=== PATIENT | male | born 1955 | race Caucasian/White ===

== ENCOUNTER 2018-01-18 16:51 | Inpatient (IN) | payer MEDICARE, MEDICAID ==
[2018-01-18 17:19] LABS: #Basophils 0.1 thou/uL (0.0-0.2); #Eosinphils 0.2 thou/uL (0.0-0.7); #Lymphocytes 2.2 thou/uL (1.20-3.40); #Monocytes 0.7 thou/uL (0.11-0.59); #Neutrophils 5.1 thou/uL (1.40-6.50); %Basophils 0.9 % (0.0-1.0); %Eosinophils 1.9 % (0.0-10.0); %Monocytes 8.8 % (0.0-10.0); %Neutrophils 61.4 % (42.0-75.0); Hemoglobin 17.8 g/dL (14.0-18.0); Mean Corpuscular HGB CONC 33.4 g/dL (32.0-36.0); Mean Corpuscular Hemoglobin 33.5 pg (27.0-31.0); Mean Platelet Volume 8.2 fL (7.4-10.4); Platelet Count 158 thou/uL (130-400); RBC Distribution Width 11.5 % (11.5-14.5); Red Blood Cell (RBC) Count 5.32 mill/uL (4.70-6.10); White Blood Cell (WBC) Count 8.2 thou/uL (4.8-10.8)
--- NOTE | 2018-01-18 17:32 | RAD ---
UPRIGHT PORTABLE CHEST ONE VIEW: 01/18/18 HISTORY: 62-year-old male with history of chest pain. COMPARISON: 11/08/09. FINDINGS: Mild increased linear interstitial markings in the bases. No confluent pneumonia, overt edema, or ple ural effusion. No cardiomegaly. IMPRESSION: Mild stable chronic changes. No acute intrathoracic disease. POS: [facility]
[2018-01-18] MEDS ORDERED: Nitroglycerin 0.4 MG TAB (25 Tab Bottle) ONE (17:52)
[2018-01-18] MEDS ORDERED: Ondansetron PF 4 MG/2 ML Vial ONE (17:52)
[2018-01-18 17:55] LABS: CKMB 8.6 ng/mL (0-6.6); Troponin I 0.643 ng/mL (< 0.028)
[2018-01-18] MEDS ORDERED: Enoxaparin Sodium 80 MG/0.8 ML SYRINGE ONE (18:06)
[2018-01-18] MEDS ORDERED: Enoxaparin Sodium 100 MG/ML SYRINGE ONE (18:07)
[2018-01-18 18:22] LABS: PTT 32.3 SEC (22.9-36.1); Prothrombin Time 12.7 SEC (12.0-14.7)
[2018-01-18 18:24] LABS: ALT (SGPT) 19 U/L (8-55); AST (SGOT) 34 U/L (5-34); Albumin 4.5 g/dL (3.5-5.0); Alkaline Phosphatase 85 U/L (40-150); Anion Gap 14 mmol/L (10-20); BUN (Urea Nitrogen) 9 mg/dL (8.4-25.7); Bilirubin, Total 0.6 mg/dL (0.2-1.2); CK (CPK) 164 U/L (30-200); Calc. Creatinine Clearance 0 mL/min (70-130); Calcium 9.5 mg/dL (7.8-10.44); Carbon Dioxide 29 mmol/L (22-29); Chloride 100 mmol/L (98-107); Estimated GFR-MDRD Greater than 90; Globulin 3.8 g/dL (2.4-3.5); Glucose 104 mg/dL (70-105); Lipase 53 U/L (8-78); Potassium 3.9 mmol/L (3.5-5.1); Protein, Total 8.3 g/dL (6.0-8.3); Sodium 139 mmol/L (136-145)
[2018-01-18] MEDS ORDERED: Acetaminophen 325 MG TAB PO PRN ×2 (19:12→22:02)
[2018-01-18] MEDS ORDERED: Sodium Chloride 0.9% 1,000 ML IV SCH (19:12)
[2018-01-18] MEDS ORDERED: HYDROcodone/Acetaminophen 5/325 mg Tablet PO PRN ×2 (19:12)
[2018-01-18] MEDS ORDERED: Ondansetron ODT 4 MG TAB SL PRN (19:12)
[2018-01-18] MEDS ORDERED: Ondansetron PF 4 MG/2 ML Vial IVP PRN ×3 (19:12→22:02)
[2018-01-18 19:27] VITALS: BMI 28.2
[2018-01-18 21:29] LABS: Troponin I 0.609 ng/mL (< 0.028)
[2018-01-18] MEDS ORDERED: Nitroglycerin 2% Ointment 1 INCH/1 GM Packet TOP SCH (22:00)
[2018-01-18] MEDS ORDERED: Calcium Carbonate 500 MG ChewTAB PO PRN (22:02)
[2018-01-18] MEDS ORDERED: hydrALAZINE 20 MG/ML VIAL SLOW IVP PRN (22:02)
[2018-01-18] MEDS ORDERED: cloNIDine 0.1 MG TAB PO PRN (22:02)
[2018-01-18] MEDS ORDERED: Benzonatate 100 MG CAP PO PRN (22:02)
[2018-01-18] MEDS ORDERED: Nitroglycerin 0.4 MG TAB (25 Tab Bottle) SL PRN (22:02)
[2018-01-18] MEDS ORDERED: Diabetic Tussin 200 MG/10 ML UDCUP PO PRN (22:02)
[2018-01-18] MEDS ORDERED: Senokot S 8.6-50 MG TAB PO PRN ×2 (22:02)
[2018-01-18] MEDS ORDERED: Bisacodyl 5 MG TAB PO PRN (22:02)
[2018-01-18 23:47] LABS: Troponin I 2.103 ng/mL (< 0.028)
[2018-01-19 00:52] LABS: Hemoglobin 15.9 g/dL (14.0-18.0); Platelet Count 158 thou/uL (130-400)
[2018-01-19 01:26] LABS: Anion Gap 11 mmol/L (10-20); BUN (Urea Nitrogen) 11 mg/dL (8.4-25.7); Calc. Creatinine Clearance 123 mL/min (70-130); Calcium 9.4 mg/dL (7.8-10.44); Carbon Dioxide 28 mmol/L (22-29); Cardiac Risk 4.4 (Less than 4.5); Chloride 101 mmol/L (98-107); Cholesterol 155 mg/dl (< 200 Desired); Estimated GFR-MDRD Greater than 90; Glucose 91 mg/dL (70-105); HDL Cholesterol 35 mg/dL (>60 Neg Risk); LDL Cholesterol, Calculated 79 mg/dL; Potassium 3.8 mmol/L (3.5-5.1); Sodium 136 mmol/L (136-145); Triglycerides 205 mg/dL (Less than 150)
[2018-01-19] MEDS: Heparin 25,000 units/D5W 500 ML IVPB SCH ×2 (01:33→21:45)
[2018-01-19] MEDS: Heparin 10,000 UNITS/ 10 ML VIAL SLOW IVP SCH ×2 (01:33→14:01)
[2018-01-19 02:38] LABS: Medtox Reader # READER 1; THC/Cannabinoid Screen Not Detected (NotDetected)
[2018-01-19 02:39] LABS: Amphetamine Not Detected (NotDetected); Barbiturates Screen Not Detected (NotDetected); Benzodiazepine Screen Not Detected (NotDetected); Cocaine Metabolite Screen Not Detected (NotDetected); Medtox Control Line Valid? VALID (VALID); Methadone Not Detected (NotDetected); Methamphetamine Not Detected (NotDetected); Opiate Screen Detected (NotDetected); Oxycodone Screen Not Detected (NotDetected); Phencyclidine (PCP) Not Detected (NotDetected); Tricyclic Screen Not Detected (NotDetected)
--- NOTE | 2018-01-19 04:12 | HP ---
DATE OF ADMISSION: 01/18/2018 The patient was seen prior to midnight. PRIMARY CARE PHYSICIAN: Timothy Patterson M.D. CHIEF COMPLAINT: Chest pain. HISTORY OF PRESENT ILLNESS: Mr. Brown is a pleasant 62-year-old male with past medical history of C OPD, GERD, hypertension, treated hepatitis C and tobacco abuse who presented to the emergency room wi th above-mentioned complaint. History is mainly obtained by the patient himself and electronic medic al records have been reviewed. According to Mr. Brown, he has been having on and off chest pain for the last week or two. He thoug ht initially it was heartburn and the pain was dull, intermittent, so he did not pay much attention. However, for the last 2 days, his pain is unrelenting. He reports that this is sharp, severe pain s tarting in the center of his chest going down the sternum and then to his back between the shoulder b lades. It is associated with bilateral arm numbness and pain. It is also associated with palpitatio ns, nausea and diaphoresis and dizziness. He denies any recent illnesses. No fever, chills, cough. He continues to smoke 5 cigarettes per day, but he has history of significant tobacco abuse up to 5 packs of cigarettes daily 8 or 9 years ago and then 2 packs of cigarettes daily up until 1 year ago. Denies any drug abuse. He has a history of drug abuse, but has been sober for the last almost 10 ye ars. He also used to be an alcoholic, but he has quit drinking in 2005. He is compliant with his bl ood pressure medications of metoprolol and lisinopril. Upon presentation to the ER, his blood pressure was elevated to 184/102. His examination otherwise w as unremarkable. His blood work showed elevated troponin initially at 0.643 with CK-MB elevated to 8 .6 with normal creatinine kinase. He was given Lovenox 1 mg/kg for this. Rest of his workup was oth erwise unremarkable. His chest x-ray did not show any evidence of infiltrate or pulmonary edema and a 12-lead EKG was also without any evidence of acute ST or T-wave changes. He is now being admitted to the hospital for non-ST elevation myocardial infarction. PAST MEDICAL HISTORY: 1. Hepatitis C, status post treatment by Dr. Browning. 2. Chronic obstructive pulmonary disease. 3. Gastroesophageal reflux disease. 4. Benign brain tumor. 5. Hypertension. 6. Tobacco abuse. PAST SURGICAL HISTORY: Left ankle surgery. PSYCHIATRIC HISTORY: History of depression. SOCIAL HISTORY: Smokes 5 cigarettes per day, but has been on heavy smokers as per HPI. No history o f current drug or alcohol abuse. ALLERGIES: No known medication allergies. FAMILY HISTORY: Significant for mother with heart disease with 2 stents. He denies any history of s troke or cancer running in his family. HOME MEDICATIONS: Lisinopril 10 mg daily and metoprolol succinate 25 mg daily. REVIEW OF SYSTEMS: A 12-point review of systems was done and it is negative except for those mention ed in the history and physical. LABORATORY DATA: CBC is unremarkable. PT, PTT, INR unremarkable. Serum chemistries within normal l imits. CK-MB 8.6. Troponin initially 0.643, then 0.609, then 2.103. BNP 118. Lipase normal. Urin e drug screen positive for opioids, otherwise unremarkable. Chest x-ray by my review shows no eviden ce of pleural effusion, edema or infiltrate. PHYSICAL EXAMINATION: VITAL SIGNS: Most recent vital signs, temperature 97.8, pulse of 72, respirations 18, saturating 97% on room air, blood pressure 123/62. GENERAL: No acute distress, awake, alert, oriented x3. HEENT: Mucous membrane is moist and pink. No oropharyngeal exudate or erythema. Head is normocepha lic, atraumatic. Pupils equal and reactive to light and accommodation. Extraocular movement intact. NECK: Supple without any lymphadenopathy, JVD or bruit. CHEST: Clear to auscultation without any wheezing, rales or rhonchi. CARDIOVASCULAR: Rate and rhythm is regular without any murmur, rubs or gallops. ABDOMEN: Soft, nontender, nondistended with positive bowel sounds. EXTREMITIES: Free of any cyanosis, clubbing or edema. NEUROLOGIC: Nonfocal. SKIN: Free of any rashes or bruises. Feels warm and dry to touch. PSYCHIATRIC: Normal affect. IMPRESSION AND PLAN: 1. Non-ST elevation myocardial infarction. The patient's troponins are up trending. We will put emerson vargas on a heparin drip and consult Cardiology in the morning. We will keep him n.p.o. after midnight in case he needs a cardiac catheterization. His presentation is quite concerning for angina versus acu te coronary syndrome. We will continue his beta xander, SENG inhibitor and also put him on full dose aspirin for now. He is hemodynamically stable at this time and will be admitted to telemetry unit. We will obtain a transthoracic echocardiogram in the morning and continue to trend serial cardiac en zymes. 2. Uncontrolled hypertension, much better controlled now. We will restart his lisinopril and metopr olol and add p.r.n. antihypertensives and monitor closely. 3. Tobacco abuse. Counseling was provided for the patient. We will use nicotine patch if necessary while in the hospital. 4. Add deep venous thrombosis and gastrointestinal prophylaxis. 5. Add p.r.n. medication orders. DISPOSITION: Mr. Brown is currently being admitted to the hospital with uncontrolled hypertension a nd non-ST elevation myocardial infarction/acute coronary syndrome. Estimated length of stay at this time is at least 2-3 midnights. Further management will depend upon his clinical course and Cardiolo gy recommendation.
[2018-01-19 05:19] LABS: #Basophils 0.1 thou/uL (0.0-0.2); #Eosinphils 0.2 thou/uL (0.0-0.7); #Lymphocytes 2.3 thou/uL (1.20-3.40); #Monocytes 0.8 thou/uL (0.11-0.59); #Neutrophils 5.2 thou/uL (1.40-6.50); %Basophils 0.7 % (0.0-1.0); %Eosinophils 1.8 % (0.0-10.0); %Lymphocytes 27.3 % (21.0-51.0); %Monocytes 9.1 % (0.0-10.0); %Neutrophils 61.1 % (42.0-75.0); Hemoglobin 15.7 g/dL (14.0-18.0); Mean Corpuscular HGB CONC 33.2 g/dL (32.0-36.0); Mean Corpuscular Hemoglobin 33.2 pg (27.0-31.0); Mean Platelet Volume 8.4 fL (7.4-10.4); Platelet Count 152 thou/uL (130-400); RBC Distribution Width 11.2 % (11.5-14.5); Red Blood Cell (RBC) Count 4.74 mill/uL (4.70-6.10); White Blood Cell (WBC) Count 8.5 thou/uL (4.8-10.8)
[2018-01-19] MEDS: Aspirin 325 mg Enteric Coated Tablet PO SCH (08:43)
[2018-01-19] MEDS: Lisinopril 10 MG TAB PO SCH (08:50)
[2018-01-19] MEDS: Famotidine 20 MG TAB PO SCH ×2 (08:50→21:45)
[2018-01-19] MEDS ORDERED: Enoxaparin Sodium 40 MG/0.4 ML SYRINGE SC SCH (09:00)
--- NOTE | 2018-01-19 11:45 | PDOC.PN ---
- Subjective Encounter Start Date: 01/19/18 Encounter Start Time: 11:43 was seen today in follow-up of NSTEMI. He says the pain he felt in his chest is much improved. He rates it a 1/10 now. He denies feeling short of breath. - Objective MAR Reviewed: Yes Vital Signs & Weight: Vital Signs (12 hours) Temp Pulse Resp BP BP Pulse Ox 01/19/18 08:50 111/61 01/19/18 08:00 93 L 01/19/18 07:15 98.7 F 71 16 111/61 93 L 01/19/18 04:00 98.1 F 68 17 102/62 93 L 01/18/18 23:46 97.4 F L 68 13 104/65 96 Weight Weight 191 lb I&O: 01/18/18 01/19/18 01/20/18 06:59 06:59 06:59 Intake Total 560 Output Total 600 Balance -40 Result Diagrams: 01/19/18 04:49 01/19/18 00:39 Phys Exam - Physical Examination HEENT: PERRLA Respiratory: no wheezing, no rales, no rhonchi, clear to auscultation bilateral Cardiovascular: RRR, no significant murmur, no rub no gallop Gastrointestinal: soft, non-tender, no distention, positive bowel sounds Musculoskeletal: no edema Neurological: non-focal, moves all 4 limbs Dx/Plan (1) NSTEMI (non-ST elevated myocardial infarction) Code(s): I21.4 - NON-ST ELEVATION (NSTEMI) MYOCARDIAL INFARCTION Status: Acute (2) Tobacco abuse Code(s): Z72.0 - TOBACCO USE Status: Chronic (3) COPD (chronic obstructive pulmonary disease) Status: Chronic (4) Hypertension Code(s): I10 - ESSENTIAL (PRIMARY) HYPERTENSION Status: Chronic - Plan * NSTEMI- he is clinically stable.Continue Heparin drip,and aspirin, and Metoprolol * Await Cardiology evaluation * Tobacco Abuse- he says he is now down to 5 cigarettes a day from 5 packs a day. He knows he needs to quit, but doesn't want to discuss this much right now. * HTN- blood pressure is stable. * COPD- stable
[2018-01-19] MEDS ORDERED: Communication Order-Pharmacy FS SCH (15:00)
--- NOTE | 2018-01-19 15:55 | CON ---
DATE OF CONSULTATION: 01/19/2018 HISTORY OF PRESENT ILLNESS: Patient is a 62-year-old gentleman who presents for evaluation of chest discomfort. The patient has no previous cardiac history. He states he has previously undergone several stress tests which have been unremarkable. The patient about a week ago started having midsternal chest discomfort. This radiated to his back. The chest pain became more persistent and prolonged. He presented to the emergency room with severe midsternal chest discomfort. PAST MEDICAL HISTORY: 1. Cerebrovascular accident. 2. Hypertension. 3. Hepatitis C. 4. Chronic obstructive pulmonary disease. PAST SURGICAL HISTORY: Ankle surgery. MEDICATIONS: Lisinopril 10 daily and Toprol 25 daily. SOCIAL HISTORY: He has a long extensive history of tobacco abuse. ALLERGIES: No known drug allergies. FAMILY HISTORY: Strong family history of coronary artery disease. REVIEW OF SYSTEMS: Ten-point system otherwise unremarkable. PHYSICAL EXAMINATION: GENERAL: Well-developed gentleman in no acute distress. VITAL SIGNS: Blood pressure was 98/65. NECK: Showed no jugular venous distention. LUNGS: Decreased breath sounds bilateral. HEART: Regular rate and rhythm, normal S1, S2. ABDOMEN: Nondistended. EXTREMITIES: Showed no edema. VASCULAR: Radial pulses are 2+. Femoral pulses are 2+. LABORATORY DATA AND IMAGING DATA: His sodium is 136, potassium 3.8, chloride 101, bicarbonate 28, BUN 11, creatinine 0.78 and his glucose was 91. His troponin was 2.1. His EKG revealed him to have normal sinus rhythm with occasional PVCs and Q-waves suggestive of previous septal infarct. IMPRESSION: 1. Non-Q-wave myocardial infarction. 2. Hypertension. 3. History of chronic obstructive pulmonary disease. 4. History of hepatitis C. 5. History of tobacco abuse. This gentleman presents with a non-Q-wave myocardial infarction and I recommend that patient has multiple cardiac risk factors. I recommend he proceed with cardiac catheterization. I explained the risks involved with the procedure like NV, bleeding, stroke, cardiac arrhythmia, cardiac . I have explained the risks involved stent placement. The patient understands these risks and wishes to proceed. PLAN: 1. Proceed with cardiac catheterization. 2. Start lipid lowering medication. MTDD
[2018-01-19] MEDS ORDERED: traZODone HCl 50 MG TAB PO SCH (21:30)
[2018-01-19] MEDS: Atorvastatin Calcium 40 MG TAB PO SCH (21:45)
[2018-01-19] MEDS: HYDROcodone/Acetaminophen 5/325 mg Tablet PO PRN (23:29)
[2018-01-20] MEDS: Aspirin 325 mg Enteric Coated Tablet PO SCH (05:57)
[2018-01-20] MEDS: Famotidine 20 MG TAB PO SCH ×2 (05:58→20:40)
[2018-01-20] MEDS: Lisinopril 10 MG TAB PO SCH (05:58)
[2018-01-20] MEDS: HYDROcodone/Acetaminophen 5/325 mg Tablet PO PRN (07:43)
[2018-01-20] MEDS ORDERED: Lidocaine 1% (PF) 30 ML VIAL ONE (08:15)
[2018-01-20] MEDS ORDERED: Midazolam HCl 2 mg/2 ml Vial ONE (08:30)
[2018-01-20] MEDS ORDERED: Fentanyl 100 MCG/2 ML VIAL ONE ×2 (08:30→10:16)
[2018-01-20] MEDS ORDERED: Iopamidol 370 76% 100 ML VIAL ONE (10:34)
[2018-01-20] MEDS ORDERED: Iopamidol 370 76% 50 ML VIAL FS ONE (10:34)
[2018-01-20] MEDS ORDERED: Nitroglycerin 100MG/250ML BOT 250 ML ONE (10:41)
[2018-01-20] MEDS ORDERED: Heparin 10,000 UNITS/1 ML VIAL ONE (11:09)
[2018-01-20] MEDS ORDERED: TICAGRELOR 90 MG TABLET ONE (11:09)
[2018-01-20] MEDS ORDERED: Sodium Chloride 0.9% 1,000 ML IV SCH (11:30)
[2018-01-20] MEDS ORDERED: Temazepam 15 MG CAP PO PRN (15:06)
[2018-01-20] MEDS: HYDROcodone/Acetaminophen 10/325 mg Tablet PO PRN ×2 (15:44→20:44)
--- NOTE | 2018-01-20 19:02 | PDOC.PN ---
- Subjective Encounter Start Date: 01/20/18 Encounter Start Time: 11:00 Patient seen and examined for NSTEMI. s/p Cath. No new complaints. No overnight events - Objective MAR Reviewed: Yes Vital Signs & Weight: Vital Signs (12 hours) Temp Pulse Resp BP BP Pulse Ox 01/20/18 14:15 97.3 F L 63 16 168/90 H 97 01/20/18 07:20 97.6 F 67 18 121/66 97 Weight Weight 190 lb 14.725 oz I&O: 01/19/18 01/20/18 01/21/18 06:59 06:59 06:59 Intake Total 560 2610 Output Total 600 1600 Balance -40 1010 Result Diagrams: 01/19/18 04:49 01/19/18 00:39 EKG Reviewed by me: Yes (Tele SR) Phys Exam - Physical Examination Constitutional: NAD Respiratory: no wheezing, no rhonchi Cardiovascular: RRR, no rub Gastrointestinal: soft, non-tender, positive bowel sounds Musculoskeletal: no edema Neurological: moves all 4 limbs Dx/Plan - Plan DVT proph w/SCDs 1. NSTEMI s/p Cath Cont ASA/Brilinta/Statins/ACEI/Metoprolol 2. HTN Cont above meds 3. Tob dep Counselled 4. Chronic Hep C 5. HLD Review of Systems - Review of Systems Respiratory: negative: Cough, Dry, Shortness of Breath, Hemoptysis, SOB with Excertion, Pleuritic Pain, Sputum, Wheezing Cardiovascular: negative: chest pain, palpitations, orthopnea, paroxysmal nocturnal dyspnea, edema, light headedness, other - Medications/Allergies Allergies/Adverse Reactions: Allergies Allergy/AdvReac Type Severity Reaction Status Date / Time No Known Allergies Allergy Verified 01/18/18 19:43 Medications: Current Medications Acetaminophen (Tylenol) 650 mg PO Q4H PRN PRN Reason: Headache/Fever/Mild Pain (1-3) Hydrocodone Bitart/Acetaminophen ([place] 10/325) 1 tab PO Q4H PRN PRN Reason: Severe Pain (7-10) Last Admin: 01/20/18 15:44 Dose: 1 tab Aspirin (Ecotrin) 81 mg PO DAILY [facility] Atorvastatin Calcium (Lipitor) 40 mg PO HS [facility]PE Last Admin: 01/19/18 21:45 Dose: 40 mg Benzonatate (Tessalon) 100 mg PO Q6H PRN PRN Reason: Cough Bisacodyl (Dulcolax) 10 mg PO DAILYPRN PRN PRN Reason: Constipation Calcium Carbonate (Tums) 1,000 mg PO Q4H PRN PRN Reason: Heartburn or Indigestion Clonidine (Catapres) 0.1 mg PO Q4H PRN PRN Reason: SBP GREATER THAN 160 Famotidine (Pepcid) 20 mg PO BID [facility] Last Admin: 01/20/18 05:58 Dose: 20 mg Guaifenesin (Robitussin Sf) 200 mg PO Q4H PRN PRN Reason: Cough Hydralazine HCl (Apresoline) 10 mg SLOW IVP Q4H PRN PRN Reason: SBP > 180 and HR < 70 Lisinopril (Zestril) 10 mg PO DAILY [facility] Last Admin: 01/20/18 05:58 Dose: 10 mg Metoprolol Succinate (Toprol Xl) 25 mg PO DAILY [facility] Last Admin: 01/20/18 05:57 Dose: 25 mg Nitroglycerin (Nitrostat) 0.4 mg SL Q5MIN PRN PRN Reason: Chest Pain Ondansetron HCl (Zofran) 4 mg IVP Q6H PRN PRN Reason: Nausea/Vomiting Senna/Docusate Sodium (Senokot S) 2 tab PO BIDPRN PRN PRN Reason: Constipation Sodium Chloride (Flush - Normal Saline) 10 ml IVF Q12HR [facility] Last Admin: 01/20/18 05:57 Dose: 10 ml Sodium Chloride (Flush - Normal Saline) 10 ml IVF PRN PRN PRN Reason: Saline Flush Temazepam (Restoril) 15 mg PO HS PRN PRN Reason: Insomnia Ticagrelor (Brilinta) 90 mg PO BID [facility]
[2018-01-20] MEDS: TICAGRELOR 90 MG TABLET PO SCH (20:39)
[2018-01-20] MEDS: Atorvastatin Calcium 40 MG TAB PO SCH (20:40)
[2018-01-21 05:51] LABS: #Basophils 0.1 thou/uL (0.0-0.2); #Eosinphils 0.1 thou/uL (0.0-0.7); #Lymphocytes 2.3 thou/uL (1.20-3.40); #Monocytes 0.6 thou/uL (0.11-0.59); #Neutrophils 3.6 thou/uL (1.40-6.50); %Eosinophils 1.7 % (0.0-10.0); %Lymphocytes 33.8 % (21.0-51.0); %Monocytes 9.1 % (0.0-10.0); %Neutrophils 54.5 % (42.0-75.0); Hemoglobin 14.6 g/dL (14.0-18.0); Mean Corpuscular HGB CONC 32.7 g/dL (32.0-36.0); Mean Corpuscular Hemoglobin 32.9 pg (27.0-31.0); Platelet Count 133 thou/uL (130-400); RBC Distribution Width 11.3 % (11.5-14.5); Red Blood Cell (RBC) Count 4.45 mill/uL (4.70-6.10); White Blood Cell (WBC) Count 6.7 thou/uL (4.8-10.8)
[2018-01-21 06:10] LABS: ALT (SGPT) 18 U/L (8-55); AST (SGOT) 30 U/L (5-34); Albumin 3.7 g/dL (3.5-5.0); Alkaline Phosphatase 64 U/L (40-150); Anion Gap 9 mmol/L (10-20); BUN (Urea Nitrogen) 7 mg/dL (8.4-25.7); Bilirubin, Total 0.7 mg/dL (0.2-1.2); Calc. Creatinine Clearance 132 mL/min (70-130); Calcium 8.8 mg/dL (7.8-10.44); Carbon Dioxide 26 mmol/L (22-29); Chloride 108 mmol/L (98-107); Estimated GFR-MDRD Greater than 90; Globulin 3.1 g/dL (2.4-3.5); Glucose 86 mg/dL (70-105); Magnesium 2.1 mg/dL (1.6-2.6); Potassium 3.8 mmol/L (3.5-5.1); Protein, Total 6.8 g/dL (6.0-8.3); Sodium 139 mmol/L (136-145)
[2018-01-21 08:25] VITALS: BP 133/81; TEMP 98.2
[2018-01-21] MEDS: HYDROcodone/Acetaminophen 10/325 mg Tablet PO PRN (08:27)
[2018-01-21] MEDS: Lisinopril 10 MG TAB PO SCH (08:29)
[2018-01-21] MEDS: Famotidine 20 MG TAB PO SCH (08:30)
[2018-01-21] MEDS: TICAGRELOR 90 MG TABLET PO SCH (08:30)
--- NOTE | 2018-01-21 08:51 | EKG ---
Test Reason : POST STENT Blood Pressure : / mmHG Vent. Rate : 051 BPM Atrial Rate : 051 BPM P-R Int : 122 ms QRS Dur : 092 ms QT Int : 454 ms P-R-T Axes : -20 -40 -06 degrees QTc Int : 418 ms Sinus bradycardia Left axis deviation Abnormal ECG When compared with ECG of 18-JAN-2018 16:57, (Unconfirmed) Premature ventricular complexes are no longer Present Criteria for Septal infarct are no longer Present T wave inversion now evident in Inferior leads Confirmed by DR. Gricel MENDOZA ([id number]) on 01/21/2018 8:51:11 AM Referred By: ERNESTO/ROLANDO Confirmed By:DR. Gricel MENDOZA
[2018-01-21] MEDS ORDERED: Aspirin 81 mg Enteric Coated Tablet PO SCH (09:00)
--- NOTE | 2018-01-21 15:00 | EKG ---
Test Reason : Blood Pressure : / mmHG Vent. Rate : 073 BPM Atrial Rate : 073 BPM P-R Int : 124 ms QRS Dur : 082 ms QT Int : 404 ms P-R-T Axes : 000 -43 -04 degrees QTc Int : 445 ms Sinus rhythm with occasional Premature ventricular complexes Left axis deviation Abnormal ECG When compared with ECG of 20-JAN-2018 11:56, (Unconfirmed) Premature ventricular complexes are now Present Confirmed by DR. Gricel MENDOZA ([id number]) on 01/21/2018 2:59:36 PM Referred By: ROLANDO Confirmed By:DR. Gricel MENDOZA
--- NOTE | 2018-01-22 00:38 | DIS ---
DATE OF DISCHARGE: 01/21/2018 DISCHARGE DISPOSITION: Home. FOLLOWUP: 1. Follow up with primary care physician, Dr. Patterson in 1 week. 2. Follow up with Cardiology, Dr. Agatha Waller . ALLERGIES: No known drug allergies. DISCHARGE MEDICATIONS: Brilinta 90 mg b.i.d., sublingual nitroglycerin as needed, aspirin 81 mg philippe y, Lipitor 40 mg at bedtime, lisinopril 10 mg daily, Toprol-XL 25 mg daily. INPATIENT CONSULTANTS: Cardiology, Dr. Waller. DIAGNOSTIC TESTS: Echocardiogram showed left ventricular ejection fraction 50% to 55%. INPATIENT PROCEDURES: On 01/20/2018, the patient underwent cardiac catheterization that showed sever e RCA disease. A stent was placed to the distal and the mid RCA. Please refer to the catheterizatio n report for further details. BRIEF HOSPITAL COURSE: The patient is a 62-year-old male with hypertension and tobacco dependence, p resented to the hospital with chest discomfort. His workup was consistent with non-ST elevation WI. Please refer to the history and physical dated 01/18/[address] Brown for further details. His m aximum troponin on admission was 2.1. The patient was admitted to the hospital with a diagnosis of non-ST elevation WI. He was started on aspirin with anticoagulation, beta blockers and SENG inhibitors were continued. The patient underwent a cardiac catheterization with RCA stent placement. He was also found to have significant disease i n the LAD with 50% stenosis in the circumflex. Lifestyle modification including tobacco cessation wa s emphasized. He has been cleared by Cardiology for discharge. FINAL DIAGNOSES: 1. Non-ST elevation myocardial infarction. 2. Coronary artery disease with RCA stent placement this admission. 3. Hypertension. 4. Tobacco dependence. 5. Chronic hepatitis C. 6. Hyperlipidemia. 7. Gastroesophageal reflux disease. Plan of care was discussed with the patient in detail. He stated understanding.
== END 2018-01-21 10:41 | disposition home or self-care (01) | DRG 247 ==
LOC: ERS 16:51 → 2NO 19:20
PROVIDERS: ADMIT Internal Medicine; ATTEND Internal Medicine
PROC: 027035Z Dilation of Coronary Artery, One Artery with Two Drug-eluting Intraluminal Devices, Percutaneous Approach (ICD-10-PCS; principal; 2018-01-18)
PROC: 4A023N7 Measurement of Cardiac Sampling and Pressure, Left Heart, Percutaneous Approach (ICD-10-PCS; 2018-01-18)
PROC: B2111ZZ Fluoroscopy of Multiple Coronary Arteries using Low Osmolar Contrast (ICD-10-PCS; 2018-01-18)
PROC: B2151ZZ Fluoroscopy of Left Heart using Low Osmolar Contrast (ICD-10-PCS; 2018-01-18)
DX: I21.4 Non-ST elevation (NSTEMI) myocardial infarction (principal); K21.9 Gastro-esophageal reflux disease without esophagitis; J44.9 Chronic obstructive pulmonary disease, unspecified; F17.210 Nicotine dependence, cigarettes, uncomplicated; Z79.899 Other long term (current) drug therapy; Z86.011 Personal history of benign neoplasm of the brain; I10 Essential (primary) hypertension; I25.10 Atherosclerotic heart disease of native coronary artery without angina pectoris; B18.2 Chronic viral hepatitis C; E78.5 Hyperlipidemia, unspecified; Z86.73 Personal history of transient ischemic attack (TIA), and cerebral infarction without residual deficits
CPT/HCPCS: 36415; 71045; 80048; 80053; 80061; 80306; 82553; 83690; 83735; 83880; 84484; 85025; 85347; 85610; 85730; 92928; 93005; 93010; 93306; 93458; 96372; 96374; 99152; 99153; C1769; C1874; C1887; C9600; J1644; J1650; J2001; J2250; J2405; J3010

== ENCOUNTER 2019-02-19 14:30 | Outpatient (CLI) | payer MEDICARE, MEDICAID ==
--- NOTE | 2019-02-19 15:12 | RAD ---
XR Knee Rt 3 View HISTORY: Right knee pain FINDINGS: No fracture or dislocation is identified. Degenerative changes are present.
== END 2019-02-19 14:31 | disposition home or self-care (01) ==
LOC: BICRAD 14:30
PROVIDERS: ATTEND Anesthesiology Pain Medicine
DX: M25.561 Pain in right knee (principal)